=== PATIENT | male | born 1970 | race Caucasian/White ===

== ENCOUNTER 2020-07-08 12:50 | Emergency (ER) | payer BC, OTHER ==
--- NOTE | 2020-07-08 13:06 | EDM.PDOC ---
ED HPI GENERAL MEDICAL PROBLEM - General Chief Complaint: Lower Extremity Injury/Pain Stated Complaint: right foot injury Time Seen by Provider: 07/08/20 13:00 Source of Information: Reports: Patient. Denies: Old Records (No [facility] records available) History Limitations: Reports: No Limitations - History of Present Illness INITIAL COMMENTS - FREE TEXT/NARRATIVE: The patient was brought to the emergency room via private automobile by his for evaluation of a right foot puncture type injury with mild to moderate blood loss at the time. The injury occurred at about noon today while he was hunting with no history of fall, other injury, paresthesias, neurological deficits, etc.. He was wearing hunting boots when he accidentally stepped on a broken metal post. He has not taken any medications or performed any treatment to this point. He complains of 6/10 throbbing right foot pain with no previous injury to this area. He is able to weight-bear without significant difficulty. No recent history of abdominal pain, heartburn, nausea, diarrhea, melena, gross hematochezia, or any food intolerance, including fatty foods, etc.. The patient also denies any recent fever, cough, wheezing, dyspnea, etc.. Onset: Today, Sudden Onset Date: 07/08/20 Onset Time: 12:00 Duration: Constant Location: Reports: Lower Extremity, Right. Denies: Head, Face, Neck, Chest, Abdomen, Back, Pelvis, Upper Extremity, Left, Upper Extremity, Right, Lower Extremity, Left, Radiates to Quality: Reports: Throbbing Severity: Moderate Improves with: Reports: None Worsens with: Reports: None Context: Reports: Trauma (As above) Associated Symptoms: Denies: Confusion, Chest Pain, Cough, Diaphoresis, Fe peña/Chills, Headaches, Loss of Appetite, Malaise, Nausea/Vomiting, Shortness of Breath, Syncope, Weakness Treatments GUEST ADVISOR: Reports: Other (see below) (None) Right Foot Pain Score (Numeric/FACES): 6 - Related Data Allergies Allergy/AdvReac Type Severity Reaction Status Date / Time No Known Allergies Allergy Verified 07/08/20 13:00 Home Meds: Home Meds Amoxicillin/Potassium Clav [Augmentin 875-125 Tablet] 1 each PO BIDMEALS #14 tablet 07/08/20 [Rx] Citalopram [Citalopram HBr] 10 mg PO DAILY 07/08/20 [History] Pravastatin [Pravachol] 20 mg PO DAILY 07/08/20 [History] Past Medical History HEENT History: Reports: Impaired Vision, Other (See Below) Other HEENT History: Patient wears glasses. Cardiovascular History: Reports: High Cholesterol, Hypertension Respiratory History: Denies: Asthma, COPD Psychiatric History: Reports: Anxiety, Depression Endocrine/Metabolic History: Reports: Obesity/BMI 30+ Social & Family History - Tobacco Use Tobacco Use Status *Q: Current Every Day Tobacco User Tobacco Use Within Last Twelve Months: Cigarettes Years of Tobacco use: 28 Packs/Tins Daily: 1 Packs/Tins Daily Comment: Started smoking at age 21 with maximum use of 1.5 packs/day. Used Tobacco, but Quit: No Smoking Cessation Information Provided To Patient: Yes Second Hand Smoke Exposure: No Second Hand Smoke Education Provided: No - Caffeine Use Caffeine Use: Reports: Coffee (2 cups/day). 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 ED EXAM, GENERAL - Physical Exam Exam: See Below Exam Limited By: No Limitations General Appearance: Alert, WD/WN, No Apparent Distress Head: Atraumatic, Normocephalic. No: Facial Swelling, Facial Tenderness Neck: Normal Inspection, Supple, Non-Tender, Full Range of Motion. No: Lymphadenopathy (L), Lymphadenopathy (R), Thyromegaly Respiratory/Chest: No Respiratory Distress, Lungs Clear, Normal Breath Sounds, No Accessory Muscle Use, Chest Non-Tender. No: Pleural Rub, Retractions Cardiovascular: Normal Peripheral Pulses, Regular Rate, Rhythm, No Edema, No Gallop, No JVD, No Murmur, No Rub. No: Gallop/S3, Gallop/S4, Friction Rub Peripheral Pulses: 2+: Radial (L), Radial (R), Dorsalis Pedis (L), Dorsalis Pedis (R) GI/Abdominal: Normal Bowel Sounds, Soft, Non-Tender, No Organomegaly, No Distention, No Abnormal Bruit, No Mass, Other (Obese). No: Guarding (Male) Exam: Deferred Rectal (Males) Exam: Deferred Back Exam: Normal Inspection, Full Range of Motion. No: CVA Tenderness (L), CVA Tenderness (R), Muscle Spasm Extremities: Normal Range of Motion, No Pedal Edema, Normal Capillary Refill, Other (1 cm puncture wound in the mid plantar aspect of the right foot with no evidence of foreign body, including with probing, etc.). No: Non-Tender (Mild to moderate palpation pain of the right foot), Trenton's Sign Neurological: Alert, Oriented, CN II-XII Intact, Normal Cognition, Normal Gait, No Motor/Sensory Deficits Psychiatric: Normal Affect, Normal Mood Skin Exam: Wound/Incision (As above). No: Diaphoretic, Ecchymosis Lymphatic: No Adenopathy ED TRAUMA EXTREMITY PROCEDURES - Laceration/Wound Repair Right Ventral Foot Lac/Wound Length In cm: 1.0 Appearance: Subcutaneous, Clean Distal NVT: Neuro & Vascular Intact, No Tendon Injury Anesthetic Type: Local Local Anesthesia - Lidocaine (Xylocaine): 1% Plain Local Anesthetic Volume: 5cc Skin Prep: Providone-Iodine (Betadine) (With additional extensive soaking prior to repair) Saline Irrigation (cc's): 0 Exploration/Debridement/Repair: Wound Explored, In a Bloodless Field, Explored to Base, No Foreign Material Found, Wound Margins Revised, Multiple Flaps Aligned Closed With: Sutures Suture Size: 4-0 # of Sutures: 2 Suture Type: Nylon, Interrupted, Simple Drain Placement: No Sterile Dressing Applied: Nurse Tetanus Status Addressed: Yes Complications: No Course - Vital Signs Last Recorded V/S: Last Vital Signs Temp 36.4 C 07/08/20 12:52 Pulse 89 07/08/20 12:52 Resp 20 07/08/20 13:12 BP 141/88 H 07/08/20 13:12 Pulse Ox 98 07/08/20 12:52 - Orders/Labs/Meds Orders: Active Orders 24 hr Category Date Time Status Vaccines to be Administered [RC] PER UNIT ROUTINE Care 07/08/20 13:07 Active Foot Comp Min 3V Rt [CR] Stat Exams 07/08/20 13:06 Taken Obtain Past Medical Record [OM.PC] Routine Oth 07/08/20 13:06 Active Labs: None Meds: Medications Discontinued Medications Generic Name Dose Route Start Last Admin Trade Name Freq PRN Reason Stop Dose Admin Diphtheria/Tetanus/Acell Pertussis 0.5 ml 07/08/20 13:07 07/08/20 13:21 Boostrix IM 07/08/20 13:08 0.5 ml .ONCE ONE Administration Lidocaine HCl 5 ml 07/08/20 13:27 07/08/20 13:31 Xylocaine-Mpf 1% INJECT 07/08/20 13:28 5 ml ONETIME ONE Administration Neomycin/Polymyxin/Bacitracin 1 each 07/08/20 13:07 07/08/20 13:21 Triple Antibiotic Oint TOP 07/08/20 13:08 1 each ONETIME ONE Administration - Radiology Interpretation Free Text/Narrative:: X-rays of the right foot, complete, shows no evidence of fracture, dislocation, foreign body, etc. Departure - Departure Time of Disposition: 13:58 ([id number]) Disposition: Home, Self-Care 01 Condition: Good Clinical Impression: Laceration, Foot pain, right, Tobacco abuse counseling, Mixed anxiety depressive disorder Hypertension Qualifiers: Hypertension type: essential hypertension Qualified Code(s): I10 - Essential (primary) hypertension Hyperlipidemia Qualifiers: Hyperlipidemia type: unspecified Qualified Code(s): E78.5 - Hyperlipidemia, unspecified - Discharge Information *PRESCRIPTION DRUG MONITORING PROGRAM REVIEWED*: Not Applicable *COPY OF PRESCRIPTION DRUG MONITORING REPORT IN PATIENT JHONNY: Not Applicable Prescriptions: Amoxicillin/Potassium Clav [Augmentin 875-125 Tablet] 1 each PO BIDMEALS #14 tablet Instructions: Hypertension, Adult, [id number], Laceration Care, Adult, [id number], Sutures, Zachary, or Adhesive Wound Closure, [id number], Health Risks of Smoking, Steps to Quit Smoking, [id number] Forms: ED Department Discharge Additional Instructions: 1. Follow up with your regular provider in 10-14 days for suture removal as directed. Bring these discharge instructions with you to that visit. 2. Antibacterial soap wash/soak with subsequent antibacterial dressing such as Neosporin, etc. as directed 2 times per day until the wound or laceration site completely heals. Keep the area clean and dry with activity restrictions as discussed. Never use hydrogen peroxide for wound care. 3. Continue to observe your blood pressures closely through your regular provider 4. Stop all tobacco use MARIA L as directed/per provided information and consider contacting Quit LIne, etc.. 5. Tylenol 650 mg by mouth every 4 hours and/or OTC ibuprofen 2-3 tabs by mouth every 6 hours with food as directed./needed. You may stagger these medications for 48-72 hours only, which essentially means that you are receiving a pain medication about every 2 hours. 6. Immediately after this visit verify that your cellular telephone's voicemail has been activated and is empty. Also verify that your home telephone's answering machine is operating properly and has space to receive messages. Note that it is sometimes necessary for us to be able to contact you at a later date to discuss your medical care. 7. Please remember that we are ALWAYS here for you and want to answer any questions you may have. Feel free to call the hospital any time and we call you back MARIA L. 10. Take all 10 days of the Augmentin as prescribed, including emergency room prescription and prescription that was e-mailed to your pharmacy. Diarrhea precautions with this medication. Sepsis Event Note (ED) - Evaluation Sepsis Screening Result: No Definite Risk - Focused Exam Vital Signs: Vital Signs Temp Pulse Resp BP Pulse Ox 07/08/20 13:12 20 141/88 H 07/08/20 12:52 36.4 C 89 20 178/96 H 98 - Problem List & Annotations (1) Laceration SNOMED Code(s): 416715165 Code(s): UAZ9034 - Status: Acute Priority: High Onset Date: 07/08/20 Annotation/Comment:: Excellent results with laceration repair as above. The puncture wound was probed with forceps with no evidence of foreign body. TDAP was given. Note previous extensive foot soaking and cleansing with Betadine prior to laceration repair. Wound care, activity restrictions, etc. were extensively discussed. Secondary to puncture injury Augmentin therapy was initiated. (2) Foot pain, right SNOMED Code(s): 27545576 Code(s): M79.671 - PAIN IN RIGHT FOOT Status: Acute Priority: High Onset Date: 07/08/20 Annotation/Comment:: Symptomatic relief as per discharge instructions. (3) Hyperlipidemia SNOMED Code(s): 95056651 Code(s): E78.5 - HYPERLIPIDEMIA, UNSPECIFIED Status: Acute Priority: Medium Annotation/Comment:: Currently under therapy. Weight loss in moderation is advisable. Patient is trying to change his lifestyle and diet. Qualifiers: Hyperlipidemia type: unspecified Qualified Code(s): E78.5 - Hyperlipidemia, unspecified (4) Hypertension SNOMED Code(s): 89896759 Code(s): I10 - ESSENTIAL (PRIMARY) HYPERTENSION Status: Chronic Priority: Medium Annotation/Comment:: Somewhat elevated initially in the emergency room, however improved prior to discharge without therapy. Known history of hypertension with no previous medical therapy. Continue to observe closely by his regular provider. Qualifiers: Hypertension type: essential hypertension Qualified Code(s): I10 - Essential (primary) hypertension (5) Tobacco abuse counseling SNOMED Code(s): 198962412, 594265026, [id number] Code(s): Z71.6 - TOBACCO ABUSE COUNSELING Status: Chronic Priority: Medium Annotation/Comment:: Tobacco cessation strongly encouraged with information provided at discharge. (6) Mixed anxiety depressive disorder SNOMED Code(s): 413941290 Code(s): F41.8 - OTHER SPECIFIED ANXIETY DISORDERS Status: Chronic Priority: Medium Annotation/Comment:: Stable with current medical therapy. - Problem List Review Problem List Initiated/Reviewed/Updated: Yes - My Orders Last 24 Hours: My Active Orders 07/08/20 13:06 Foot Comp Min 3V Rt [CR] Stat Obtain Past Medical Record [OM.PC] Routine 07/08/20 13:07 Vaccines to be Administered [RC] PER UNIT ROUTINE - Assessment/Plan Last 24 Hours: My Active Orders 07/08/20 13:06 Foot Comp Min 3V Rt [CR] Stat Obtain Past Medical Record [OM.PC] Routine 07/08/20 13:07 Vaccines to be Administered [RC] PER UNIT ROUTINE Assessment:: As above Plan: As above. Extensive precautions were given to the patient, who is in agreement with the treatment plan. See Patient Instructions for further treatment and plan.
[2020-07-08] MEDS ORDERED: Diphtheria,Pertussis(Acell),Tetanus Vaccine 0.5 ML Syringe IM ONE (13:07)
[2020-07-08] MEDS ORDERED: Bacitracin/Neomycin/Polymyxin B Oint 0.9 GM U/D Packet TOP ONE (13:07)
== END 2020-07-08 13:58 | disposition home or self-care (01) ==
LOC: LL.ED 12:50
DX: S91.311A Laceration without foreign body, right foot, initial encounter (principal); I10 Essential (primary) hypertension; E78.5 Hyperlipidemia, unspecified; F41.8 Other specified anxiety disorders; E66.9 Obesity, unspecified; J44.9 Chronic obstructive pulmonary disease, unspecified; Z71.6 Tobacco abuse counseling; Z23 Encounter for immunization; F17.210 Nicotine dependence, cigarettes, uncomplicated; Z68.31 Body mass index [BMI] 31.0-31.9, adult; Z79.899 Other long term (current) drug therapy; W22.8XXA Striking against or struck by other objects, initial encounter
CPT/HCPCS: 12001; 73630-RT; 90471; 90715; 99283-25; J2001